=== PATIENT | female | born 1980 | race Caucasian/White ===

== ENCOUNTER 2018-07-21 12:13 | Outpatient (CLI) ==
--- NOTE | 2018-07-21 13:18 | US ---
EXAM: Ultrasound soft tissue neck HISTORY: Anterior neck mass FINDINGS: Garza-scale ultrasound and color Doppler imaging was performed in the region of interest de scribed as the mid anterior neck palpable area. In this region, there was a subcutaneous oval-shaped hypoechoic well-defined mass or complex collecti on with no internal blood flow definitely demonstrated. There is posterior acoustic enhancement. Th is measured 1.3 x 0.7 x 1.1 cm. No other findings. IMPRESSION: 1. There is a mass seen in the region of interest as described which is of indeterminate etiology. This could be solid or complex cystic in nature. Correlation with MRI neck is recommended.
== END 2018-07-21 12:14 | disposition home or self-care (01) ==
LOC: RAD 12:13
PROVIDERS: ATTEND Family Medicine
DX: R22.1 Localized swelling, mass and lump, neck (principal)